=== PATIENT | male | born 1945 | race Two or more races ===

== ENCOUNTER 2024-01-28 00:29 | Inpatient (IN) | payer OTHER ==
[~2024-01-28] VITALS: Ht 152.4 cm; Wt 128.4 kg
[2024-01-28] MEDS ORDERED: GABAPENTIN ER600 MG PO (00:47)
[2024-01-28] MEDS ORDERED: TENORMIN50 M1 PO (00:47)
[2024-01-28] MEDS ORDERED: SIMVASTATIN5 MG PO (00:47)
[2024-01-28] MEDS ORDERED: PLAVIX75 MG PO (00:47)
[2024-01-28] MEDS ORDERED: DAFLONEX-XL 11300 MG PO (00:48)
[2024-01-28] MEDS ORDERED: HUMULIN 70100 UNIT/2 SUBCUTANEO (00:49)
--- NOTE | 2024-01-28 00:49 | NUR ---
SE RECIBE PTE MASCULINO ALERTA Y ORIENTADO EN [place] ESFER[facility] REFIERE 3 EPISODIOS DE SANGRADO RECTAL Y PRESENCIA DE COAGULO, DIARREAS Y MAREOS. SE REALIZA EKG Y SE PRESENTA A MD DE TUR[place]. SE CATA S/V Y SE UBICA.
[2024-01-28] MEDS ORDERED: RINGERS SOLUTION,LACTATED 1,000 ML IV STA (02:01)
[2024-01-28 02:39] LABS: URINE APPEARANCE Clear; URINE BILIRRUBIN Negative (NEGATIVE); URINE BLOOD Negative; URINE COLOR Yellow; URINE KETONE Negative (NEGATIVE); URINE LEUKOCYTE Negative; URINE NITRATE Negative; URINE UROBILINOGEN 0.2 E.U./dl
[2024-01-28 02:43] LABS: URINE BACTERIA 94.4 uL (0.0-1933); URINE EPITHELIAL CELLS 1.5 uL (0.0-38.8)
[2024-01-28 02:52] LABS: URINE GLUCOSE 500 MG/DL (NEGATIVE); URINE PROTEIN 300 (NEGATIVE); URINE RBC 1.6 uL (0.0-20.8)
--- NOTE | 2024-01-28 03:03 | NUR ---
PTE ALERTA Y ORIENTADO X3 EN COMPANIA DE ESPOSA. SE REALIZAN MUESTRAS DE LAB ACE ORDEN MEDICA Y BAJO MEDIDAS ASEPTICA. SE CANALIZA CON ANGIO 18 Y 20 EN MANO RT, AREA PATENTE.
[2024-01-28 03:08] LABS: MEAN CORPUSCULAR HGB CONC 33.8 g/dl (32.0-36.0); PLATELET COUNT 153 K/uL (150-450); RED BLOOD COUNT 2.06 M/uL (4.00-6.00); RED CELL DISTRIBUTION WIDTH 13.8 % (11.5-14.5)
[2024-01-28 03:10] LABS: HEMATOCRIT 21.6 % (39.0-48.0); HEMOGLOBIN 7.3 g/dL (13-16.00); MEAN CORPUSCULAR HEMOGLOBIN 35.4 pg (27.00-32.0)
--- NOTE | 2024-01-28 03:10 | NUR ---
PTE SETH SANDHU.
[2024-01-28 03:21] LABS: INR 1.19; PARTIAL THROMBOPLASTIN TIME 24.2 SECONDS (22.0-34.0); PROTHROMBIN TIME 12.8 SECONDS (9.0-11.5)
[2024-01-28 04:05] LABS: ALBUMIN 2.6 gm/dL (3.4-5.0); BILIRUBIN TOTAL 0.28 mg/dL (0.3-1.2); GFR 14.56; GLOBULINA 3.3 G/DL (2.4-3.5); POTASSIUM 5.16 mEq/L (3.5-5.1); TOTAL PROTEIN 5.9 gm/dL (6.4-8.2)
[2024-01-28 04:52] LABS: CREATININE SERUM 3.99 mg/dL (0.70-1.30)
[2024-01-28] MEDS ORDERED: SODIUM POLYSTYRENE SULFONATE 30G/8 TSP PO ONE (11:00)
[2024-01-28] MEDS ORDERED: PANTOPRAZOLE SODIUM 40 MG/VIAL VIAL IV STA (14:23)
[2024-01-28] MEDS ORDERED: INSULIN LISPRO 1,000 UNIT/10 ML UNITS SUBCUTANEO PRN (14:30)
[2024-01-28] MEDS ORDERED: DEXTROSE 50 % IN WATER 0.5 G/ML DISP.SYRIN IV PRN (14:30)
[2024-01-28] MEDS ORDERED: AA 4.25%/CAL/LYTES/DEXT 5% 1,000 ML PERIFERAL SCH (17:00)
[2024-01-28] MEDS ORDERED: PANTOPRAZOLE SODIUM 40 MG/VIAL VIAL IV SCH (21:00)
[2024-01-28 22:08] VITALS: BP 146/68
[2024-01-28] MEDS ORDERED: ATORVASTATIN CALCIUM 40 MG TABLET PO SCH (22:53)
[2024-01-28] MEDS ORDERED: FUROsemide 40 MG/4 ML VIAL IV SCH (23:00)
[2024-01-29 02:31] VITALS: BP 97/39
[2024-01-29] MEDS ORDERED: NIFEDIPINE 30 MG TAB.SA.OSM PO SCH (09:00)
[2024-01-29] MEDS ORDERED: PATIENTS OWN MEDICATION (MEDICAMENTO EN PISO) PO SCH (09:00)
[2024-01-29] MEDS ORDERED: SUCRALFATE 1 G TABLET PO SCH (09:00)
[2024-01-29 10:10] VITALS: BP 141/65; O2SAT 97
[2024-01-29 12:05] LABS: HEMATOCRIT 19.1 % (39.0-48.0); MEAN CORPUSCULAR HEMOGLOBIN 33.8 pg (27.00-32.0); MEAN CORPUSCULAR HGB CONC 34.6 g/dl (32.0-36.0); PLATELET COUNT 98 K/uL (150-450); RED BLOOD COUNT 1.95 M/uL (4.00-6.00); RED CELL DISTRIBUTION WIDTH 15.9 % (11.5-14.5)
[2024-01-29 12:22] LABS: ALBUMIN 2.3 gm/dL (3.4-5.0); BILIRUBIN TOTAL 0.45 mg/dL (0.3-1.2); CALCIUM 8.1 mg/dL (8.5-10.1); CREATININE SERUM 3.34 mg/dL (0.70-1.30); GFR 17.88; GLOBULINA 2.3 G/DL (2.4-3.5); MAGNESIUM 1.9 mg/dL (1.8-2.4); PHOSPHOROUS 5.2 mg/dL (2.5-4.9); POTASSIUM 4.25 mEq/L (3.5-5.1); TOTAL PROTEIN 4.6 gm/dL (6.4-8.2)
[2024-01-29 12:34] LABS: HEMOGLOBIN 6.6 g/dL (13-16.00)
[2024-01-29 20:32] VITALS: BP 97/55
[2024-01-29] MEDS ORDERED: GABAPENTIN 600 MG TABLET PO SCH (21:00)
[2024-01-29] MEDS ORDERED: RINGERS SOLUTION,LACTATED 1,000 ML IV STA (23:00)
[2024-01-29] MEDS ORDERED: AMINOCAPROIC ACID 250 MG/ML VIAL IV ONE (23:00)
[2024-01-30] VITALS (7 sets, daily range): BP systolic 85–128; BP diastolic 40–83; O2SAT 93–100
[2024-01-30] MEDS ORDERED: RINGERS SOLUTION,LACTATED 1,000 ML IV SCH (17:45)
[2024-01-30 19:38] LABS: MEAN CELL VOLUME 89.5 fL (80.0-100.00); MEAN CORPUSCULAR HGB CONC 34.3 g/dl (32.0-36.0); RED BLOOD COUNT 2.91 M/uL (4.00-6.00); RED CELL DISTRIBUTION WIDTH 18.3 % (11.5-14.5)
[2024-01-30 19:42] LABS: HEMOGLOBIN 8.9 g/dL (13-16.00); MEAN CORPUSCULAR HEMOGLOBIN 30.5 pg (27.00-32.0); PLATELET COUNT 74 K/uL (150-450)
[2024-01-30 19:58] LABS: ALBUMIN 2.2 gm/dL (3.4-5.0); BILIRUBIN TOTAL 0.68 mg/dL (0.3-1.2); CALCIUM 7.8 mg/dL (8.5-10.1); CREATININE SERUM 2.41 mg/dL (0.70-1.30); GFR 26.05; GLOBULINA 2.5 G/DL (2.4-3.5); MAGNESIUM 1.7 mg/dL (1.8-2.4); POTASSIUM 3.26 mEq/L (3.5-5.1); TOTAL PROTEIN 4.7 gm/dL (6.4-8.2)
[2024-01-31] MEDS ORDERED: POTASSIUM CHLORIDE IN WATER 100 ML IV ONE (00:30)
[2024-01-31] MEDS ORDERED: MAGNESIUM SULFATE IN WATER 50 ML IV ONE (00:30)
[2024-01-31 04:00] VITALS: BP 115/72; O2SAT 100
[2024-01-31 07:09] VITALS: BP 91/69; O2SAT 62
[2024-01-31 12:00] VITALS: BP 116/68; O2SAT 100
[2024-01-31 12:25] LABS: HEMOGLOBIN 10.5 g/dL (13-16.00); MEAN CORPUSCULAR HEMOGLOBIN 31.1 pg (27.00-32.0); PLATELET COUNT 74 K/uL (150-450); RED BLOOD COUNT 3.37 M/uL (4.00-6.00); RED CELL DISTRIBUTION WIDTH 17.9 % (11.5-14.5)
[2024-01-31 12:31] LABS: ALBUMIN 2.3 gm/dL (3.4-5.0); BILIRUBIN TOTAL 1.03 mg/dL (0.3-1.2); CALCIUM 7.9 mg/dL (8.5-10.1); CREATININE SERUM 2.2 mg/dL (0.70-1.30); GFR 28.94; GLOBULINA 2.9 G/DL (2.4-3.5); MAGNESIUM 2.1 mg/dL (1.8-2.4); PHOSPHOROUS 3.7 mg/dL (2.5-4.9); POTASSIUM 3.46 mEq/L (3.5-5.1); TOTAL PROTEIN 5.2 gm/dL (6.4-8.2)
[2024-01-31 15:55] VITALS: BP 81/67; O2SAT 100
[2024-01-31] MEDS ORDERED: NOREPINEPHRINE BITARTRATE 8 MG in DEXTROSE 5 % IN WATER 250 ML IV PRN (17:15)
[2024-01-31 18:58] LABS: HEMATOCRIT 30.3 % (39.0-48.0); HEMOGLOBIN 10.4 g/dL (13-16.00); RED BLOOD COUNT 3.38 M/uL (4.00-6.00)
[2024-01-31] MEDS ORDERED: CEFTRIAXONE SODIUM 1,000 MG VIAL IV SCH (19:58)
[2024-01-31 20:00] VITALS: BP 92/62; O2SAT 100
[2024-01-31 23:19] VITALS: BP 88/58; O2SAT 100
[2024-02-01] VITALS (9 sets, daily range): BP systolic 101–135; BP diastolic 66–95; O2SAT 95–100
[2024-02-01] MEDS ORDERED: BISACODYL 5 MG TABLET.EC PO ONE (06:15)
[2024-02-01 06:24] LABS: HEMATOCRIT 29.4 % (39.0-48.0); HEMOGLOBIN 10.2 g/dL (13-16.00); MEAN CELL VOLUME 89.7 fL (80.0-100.00); MEAN CORPUSCULAR HEMOGLOBIN 31.1 pg (27.00-32.0); MEAN CORPUSCULAR HGB CONC 34.7 g/dl (32.0-36.0); RED BLOOD COUNT 3.28 M/uL (4.00-6.00); RED CELL DISTRIBUTION WIDTH 17.3 % (11.5-14.5)
[2024-02-01 06:31] LABS: PLATELET COUNT 75 K/uL (150-450)
[2024-02-01 06:49] LABS: ALBUMIN 2.5 gm/dL (3.4-5.0); BILIRUBIN TOTAL 0.85 mg/dL (0.3-1.2); CALCIUM 8.1 mg/dL (8.5-10.1); CREATININE SERUM 2.06 mg/dL (0.70-1.30); GFR 31.22; GLOBULINA 2.8 G/DL (2.4-3.5); POTASSIUM 3.1 mEq/L (3.5-5.1); TOTAL PROTEIN 5.3 gm/dL (6.4-8.2)
[2024-02-01] MEDS ORDERED: POLYETHYLENE GLYCOL 3350 238 GM POWDER PO NR (08:10)
[2024-02-01] MEDS ORDERED: BISACODYL 5 MG TABLET.EC PO NR (08:15)
[2024-02-01 09:22] LABS: ALT/SGPT 20 U/L (12-78); AST/SGOT 34 U/L (15-37); LDH 346 U/L (87-241); PHOSPHOKINASE CREATININE 164 U/L (39-308)
[2024-02-01 09:24] LABS: URINE APPEARANCE Clear; URINE BACTERIA 89.4 uL (0.0-1933); URINE BILIRRUBIN Negative (NEGATIVE); URINE BLOOD Moderate; URINE COLOR Yellow; URINE EPITHELIAL CELLS 12.9 uL (0.0-38.8); URINE KETONE Trace (NEGATIVE); URINE LEUKOCYTE Negative; URINE NITRATE Negative; URINE RBC 3.2 uL (0.0-20.8); URINE UROBILINOGEN 0.2 E.U./dl; URINE WBC 6.3 uL (0.0-23.2)
[2024-02-01 09:45] LABS: URINE CAST > 21.83 uL (0.0-1.40); URINE GLUCOSE >=1000 MG/DL (NEGATIVE); URINE PROTEIN 300 (NEGATIVE)
[2024-02-01 09:49] LABS: URINE CRYSTALS FEW /HPF
[2024-02-01] MEDS ORDERED: FUROsemide 20 MG/2 ML VIAL IV ONE (10:00)
[2024-02-01 10:38] LABS: ABG PH 7.319 (7.35-7.45); ABG PO2 190.5 mmHg (80-100); ABG pCO2 49.3 mmHg (35-45); BASE EXCESS -1.9 mmol/l; BICARBONATE 24.8 mmol/l (23-25); SaO2 99.5 %; Tco2 26.3 mmol/l
[2024-02-01 10:39] LABS: allen test SATISFACTORY; o2 100 %; puncture site RADIAL RIGHT
[2024-02-01 10:40] LABS: ABG PH 7.327 (7.35-7.45); ABG PO2 328.3 mmHg (80-100); ABG pCO2 47.3 mmHg (35-45); BASE EXCESS -2.1 mmol/l; BICARBONATE 24.2 mmol/l (23-25); SaO2 99.9 %; Tco2 25.7 mmol/l
[2024-02-01 10:42] LABS: allen test SATISFACTORY; o2 100 %; puncture site RADIAL RIGHT
[2024-02-01] MEDS ORDERED: CHLORHEXIDINE GLUCONATE 15ML BRUSH KIT MM SCH ×2 (17:00→17:07)
[2024-02-01] MEDS ORDERED: POLYVINYL ALCOHOL 15 ML DROPS OP SCH (17:00)
[2024-02-01] MEDS ORDERED: CARBOXYMETHYLCELLULOSE SODIUM 1 EACH DROPERETTE OP SCH (17:07)
[2024-02-01] MEDS ORDERED: MIDAZOLAM HCL 100 MG in 0.9 % SODIUM CHLORIDE 100 ML IV SCH (17:15)
[2024-02-01 18:28] LABS: HEMATOCRIT 29.7 % (39.0-48.0); HEMOGLOBIN 10.2 g/dL (13-16.00); MEAN CELL VOLUME 89.8 fL (80.0-100.00); MEAN CORPUSCULAR HEMOGLOBIN 30.9 pg (27.00-32.0); MEAN CORPUSCULAR HGB CONC 34.4 g/dl (32.0-36.0); RED CELL DISTRIBUTION WIDTH 17.4 % (11.5-14.5)
[2024-02-01 18:39] LABS: PLATELET COUNT 78 K/uL (150-450)
[2024-02-01] MEDS ORDERED: AMIODARONE HCL 50 MG/ML AMPUL IV SCH (18:45)
[2024-02-01 19:27] LABS: ABG PH 7.333 (7.35-7.45); ABG PO2 205.7 mmHg (80-100); BASE EXCESS -1.4 mmol/l; SaO2 99.6 %; Tco2 26.4 mmol/l
[2024-02-01 20:10] LABS: allen test SATISFACTORY; o2 100 %; puncture site RADIAL LEFT
[2024-02-02] VITALS (17 sets, daily range): BP systolic 81–137; BP diastolic 57–98; O2SAT 99–100
[2024-02-02] MEDS ORDERED: FUROsemide 20 MG/2 ML VIAL IV SCH (09:00)
[2024-02-02 09:22] LABS: ABG PO2 111.9 mmHg (80-100); ABG pCO2 46.6 mmHg (35-45)
[2024-02-02 09:23] LABS: BASE EXCESS -0.2 mmol/l; BICARBONATE 25.7 mmol/l (23-25); SaO2 98.1 %; Tco2 27.1 mmol/l
[2024-02-02 09:24] LABS: allen test SATISFACTORY; o2 100 %; puncture site RADIAL RIGHT
[2024-02-02 09:43] LABS: HEMATOCRIT 29.5 % (39.0-48.0); HEMOGLOBIN 10.2 g/dL (13-16.00); MEAN CELL VOLUME 90.1 fL (80.0-100.00); MEAN CORPUSCULAR HEMOGLOBIN 31.1 pg (27.00-32.0); MEAN CORPUSCULAR HGB CONC 34.6 g/dl (32.0-36.0); PLATELET COUNT 65 K/uL (150-450); RED BLOOD COUNT 3.27 M/uL (4.00-6.00); RED CELL DISTRIBUTION WIDTH 17.4 % (11.5-14.5)
[2024-02-02 10:46] LABS: CALCIUM 8.2 mg/dL (8.5-10.1); CREATININE SERUM 1.95 mg/dL (0.70-1.30); GFR 33.27; MAGNESIUM 2.1 mg/dL (1.8-2.4)
[2024-02-02 10:51] LABS: POTASSIUM 2.92 mEq/L (3.5-5.1)
[2024-02-02] MEDS ORDERED: POTASSIUM CHLORIDE IN WATER 40 MEQ/100 ML PIGGYBAG IV SCH (13:00)
[2024-02-03] VITALS (23 sets, daily range): BP systolic 63–116; BP diastolic 51–92; O2SAT 98–116
[2024-02-03 09:03] LABS: ABG PH 7.385 (7.35-7.45); ABG PO2 118.6 mmHg (80-100); ABG pCO2 38.9 mmHg (35-45); BASE EXCESS -1.9 mmol/l; BICARBONATE 22.8 mmol/l (23-25); SaO2 98.5 %
[2024-02-03 09:04] LABS: allen test SATISFACTORY; o2 60 %; puncture site RADIAL RIGHT
[2024-02-03] MEDS ORDERED: FentaNYL CITRATE/PF 1,000 MCG in 0.9 % SODIUM CHLORIDE 100 ML IV SCH (09:15)
[2024-02-03 10:08] LABS: HEMATOCRIT 30.8 % (39.0-48.0); HEMOGLOBIN 10.2 g/dL (13-16.00); MEAN CELL VOLUME 91.1 fL (80.0-100.00); MEAN CORPUSCULAR HEMOGLOBIN 30.3 pg (27.00-32.0); MEAN CORPUSCULAR HGB CONC 33.2 g/dl (32.0-36.0); RED BLOOD COUNT 3.38 M/uL (4.00-6.00); RED CELL DISTRIBUTION WIDTH 17.8 % (11.5-14.5)
[2024-02-03 10:09] LABS: PLATELET COUNT 99 K/uL (150-450)
[2024-02-03 11:26] LABS: ALBUMIN 1.8 gm/dL (3.4-5.0); BILIRUBIN TOTAL 0.54 mg/dL (0.3-1.2); CALCIUM 8.2 mg/dL (8.5-10.1); CREATININE SERUM 1.97 mg/dL (0.70-1.30); GFR 32.88; GLOBULINA 3.2 G/DL (2.4-3.5); POTASSIUM 3.41 mEq/L (3.5-5.1)
[2024-02-04] VITALS (21 sets, daily range): BP systolic 62–149; BP diastolic 37–94; O2SAT 94–100
[2024-02-04 10:27] LABS: ABG PO2 64.3 mmHg (80-100); ABG pCO2 40.6 mmHg (35-45); BASE EXCESS -1.5 mmol/l; BICARBONATE 23.5 mmol/l (23-25); SaO2 91.6 %; Tco2 24.7 mmol/l
[2024-02-04 11:20] LABS: allen test SATISFACTORY; o2 50 %; puncture site RADIAL RIGHT
[2024-02-04 12:03] LABS: HEMATOCRIT 31.4 % (39.0-48.0); HEMOGLOBIN 10.8 g/dL (13-16.00); MEAN CORPUSCULAR HEMOGLOBIN 30.9 pg (27.00-32.0); MEAN CORPUSCULAR HGB CONC 34.3 g/dl (32.0-36.0); RED BLOOD COUNT 3.49 M/uL (4.00-6.00); RED CELL DISTRIBUTION WIDTH 18.5 % (11.5-14.5)
[2024-02-04 12:18] LABS: PLATELET COUNT 109 K/uL (150-450)
[2024-02-05] VITALS (20 sets, daily range): BP systolic 56–115; BP diastolic 28–87; O2SAT 85–100
[2024-02-05 07:38] LABS: ALBUMIN 1.4 gm/dL (3.4-5.0); BILIRUBIN TOTAL 0.42 mg/dL (0.3-1.2); CALCIUM 8.2 mg/dL (8.5-10.1); CREATININE SERUM 2.15 mg/dL (0.70-1.30); GFR 29.72; MAGNESIUM 1.8 mg/dL (1.8-2.4); PHOSPHOROUS 3.2 mg/dL (2.5-4.9); POTASSIUM 3.23 mEq/L (3.5-5.1); TOTAL PROTEIN 4.4 gm/dL (6.4-8.2)
[2024-02-05 07:47] LABS: HEMOGLOBIN 9.5 g/dL (13-16.00); MEAN CELL VOLUME 91.3 fL (80.0-100.00); MEAN CORPUSCULAR HEMOGLOBIN 31.1 pg (27.00-32.0); RED BLOOD COUNT 3.07 M/uL (4.00-6.00); RED CELL DISTRIBUTION WIDTH 18.5 % (11.5-14.5)
[2024-02-05 08:35] LABS: PLATELET COUNT 98 K/uL (150-450)
[2024-02-05 10:15] LABS: ABG PH 7.392 (7.35-7.45); ABG pCO2 39.9 mmHg (35-45)
[2024-02-05 10:16] LABS: ABG PO2 59.8 mmHg (80-100); BASE EXCESS -1.1 mmol/l; BICARBONATE 23.7 mmol/l (23-25); SaO2 90.2 %; Tco2 24.9 mmol/l; allen test SATISFACTORY; o2 60 %; puncture site RADIAL LEFT
[2024-02-05] MEDS ORDERED: POTASSIUM CHLORIDE 20MEQ/100ML H2O PB IV NR (13:40)
[2024-02-06] VITALS (21 sets, daily range): BP systolic 56–128; BP diastolic 18–92; O2SAT 92–100
[2024-02-06 06:56] LABS: HEMATOCRIT 26.8 % (39.0-48.0); HEMOGLOBIN 9.5 g/dL (13-16.00); MEAN CELL VOLUME 90.2 fL (80.0-100.00); MEAN CORPUSCULAR HEMOGLOBIN 31.9 pg (27.00-32.0); MEAN CORPUSCULAR HGB CONC 35.4 g/dl (32.0-36.0); RED BLOOD COUNT 2.98 M/uL (4.00-6.00); RED CELL DISTRIBUTION WIDTH 18.4 % (11.5-14.5)
[2024-02-06 06:57] LABS: PLATELET COUNT 99 K/uL (150-450)
[2024-02-06 07:04] LABS: INR 1.49; PARTIAL THROMBOPLASTIN TIME 32.5 SECONDS (22.0-34.0)
[2024-02-06 07:24] LABS: PROTHROMBIN TIME 15.8 SECONDS (9.0-11.5)
[2024-02-06 07:28] LABS: ALBUMIN 1.3 gm/dL (3.4-5.0); BILIRUBIN TOTAL 0.59 mg/dL (0.3-1.2); BILIRUBIN,CONJUGATED 0.37 mg/dL (0.0-0.2); BILIRUBIN,UNCONJUGATED 0.22 mg/dL (0.0-0.6); CALCIUM 8.4 mg/dL (8.5-10.1); CHOL HDL RATIO 3.2 (0-5.0); CREATININE SERUM 2.2 mg/dL (0.70-1.30); GFR 28.94; GLOBULINA 2.8 G/DL (2.4-3.5); MAGNESIUM 1.5 mg/dL (1.8-2.4); POTASSIUM 3.19 mEq/L (3.5-5.1); TOTAL PROTEIN 4.1 gm/dL (6.4-8.2)
[2024-02-06 08:51] LABS: ABG PH 7.372 (7.35-7.45); ABG PO2 67.2 mmHg (80-100); ABG pCO2 42.1 mmHg (35-45); BASE EXCESS -1.4 mmol/l; BICARBONATE 23.9 mmol/l (23-25); SaO2 92.4 %; Tco2 25.2 mmol/l
[2024-02-06 09:16] LABS: allen test SATISFACTORY; o2 50 %; puncture site RADIAL RIGHT
[2024-02-06] MEDS ORDERED: MAGNESIUM SULFATE IN WATER 4 GM/100 ML PIGGYBACK IV STA (10:16)
[2024-02-06] MEDS ORDERED: POTASSIUM CHLORIDE IN WATER 100 ML IV SCH (10:17)
[2024-02-06] MEDS ORDERED: SODIUM CHLORIDE 0.45 % 1,000 ML IV SCH (10:30)
[2024-02-06] MEDS ORDERED: DEXTROSE 5 %-0.45 % SOD CHLORD 1,000 ML IV SCH (11:15)
[2024-02-06] MEDS ORDERED: FUROsemide 40 MG/4 ML VIAL IV SCH (13:00)
[2024-02-06] MEDS ORDERED: AMINO ACIDS/PROTEIN HYDROLYS 30 ML BLIST.PACK NGT SCH (13:00)
[2024-02-06] MEDS ORDERED: ALBUMIN HUMAN 100 ML VIAL IV SCH (13:00)
[2024-02-06] MEDS ORDERED: FUROsemide 20 MG/2 ML VIAL IV SCH (21:00)
[2024-02-07] VITALS (20 sets, daily range): BP systolic 69–158; BP diastolic 43–96; O2SAT 92–100
[2024-02-07] MEDS ORDERED: ENALAPRILAT IV PRN (04:45)
[2024-02-07] MEDS ORDERED: ENALAPRILAT DIHYDRATE 1.25 MG/ML VIAL IV PRN (08:15)
[2024-02-07 08:49] LABS: ABG pCO2 45.5 mmHg (35-45); BASE EXCESS -2.7 mmol/l; BICARBONATE 23.4 mmol/l (23-25); SaO2 83.8 %; Tco2 24.8 mmol/l
[2024-02-07 10:34] LABS: ABG PO2 52.7 mmHg (80-100); allen test SATISFACTORY; o2 80 %; puncture site RADIAL RIGHT
[2024-02-07 12:21] LABS: HEMATOCRIT 29.8 % (39.0-48.0); HEMOGLOBIN 9.8 g/dL (13-16.00); MEAN CELL VOLUME 90.1 fL (80.0-100.00); MEAN CORPUSCULAR HEMOGLOBIN 29.8 pg (27.00-32.0); MEAN CORPUSCULAR HGB CONC 33.1 g/dl (32.0-36.0); RED BLOOD COUNT 3.31 M/uL (4.00-6.00); RED CELL DISTRIBUTION WIDTH 18.2 % (11.5-14.5)
[2024-02-07 12:24] LABS: PLATELET COUNT 98 K/uL (150-450)
[2024-02-07] MEDS ORDERED: HYDROCORTISONE SODIUM SUCC/PF 100 MG VIAL IV STA (12:26)
[2024-02-07 12:48] LABS: ALBUMIN 2.2 gm/dL (3.4-5.0); BILIRUBIN TOTAL 2.06 mg/dL (0.3-1.2); CALCIUM 7.9 mg/dL (8.5-10.1); CREATININE SERUM 2.71 mg/dL (0.70-1.30); GFR 22.75; GLOBULINA 2.4 G/DL (2.4-3.5); MAGNESIUM 2.3 mg/dL (1.8-2.4); PHOSPHOROUS 3.3 mg/dL (2.5-4.9); POTASSIUM 3.51 mEq/L (3.5-5.1); TOTAL PROTEIN 4.6 gm/dL (6.4-8.2)
[2024-02-07 14:07] LABS: PLEURAL FLUID APPEARANCE CRYSTAL CLEAR; PLEURAL FLUID COLOR YELLOW
[2024-02-07 14:33] LABS: TP PLEURAL FLUID 1.7 g/dl
[2024-02-07 15:20] LABS: MONONUCLEAR 85 %; POLYMORPHONUCLEAR 15 %
[2024-02-07] MEDS ORDERED: CEFTRIAXONE SODIUM 2,000 MG VIAL IV SCH (17:00)
[2024-02-07] MEDS ORDERED: FF) Daptomycin 500 MG/VIAL IV SCH (17:00)
[2024-02-07] MEDS ORDERED: HYDROCORTISONE SODIUM SUCC/PF 50 MG/ML ML IV SCH (18:00)
[2024-02-08] VITALS (21 sets, daily range): BP systolic 67–165; BP diastolic 32–92; O2SAT 93–98
[2024-02-08 06:47] LABS: HEMATOCRIT 28.6 % (39.0-48.0); HEMOGLOBIN 9.3 g/dL (13-16.00); MEAN CORPUSCULAR HEMOGLOBIN 29.9 pg (27.00-32.0); MEAN CORPUSCULAR HGB CONC 32.5 g/dl (32.0-36.0); RED BLOOD COUNT 3.11 M/uL (4.00-6.00)
[2024-02-08 07:17] LABS: ALBUMIN 1.5 gm/dL (3.4-5.0); BILIRUBIN TOTAL 0.98 mg/dL (0.3-1.2); CALCIUM 7.9 mg/dL (8.5-10.1); CREATININE SERUM 2.67 mg/dL (0.70-1.30); GFR 23.15; GLOBULINA 2.3 G/DL (2.4-3.5); MAGNESIUM 2.6 mg/dL (1.8-2.4); PHOSPHOROUS 5.8 mg/dL (2.5-4.9); POTASSIUM 4.75 mEq/L (3.5-5.1); TOTAL PROTEIN 3.8 gm/dL (6.4-8.2)
[2024-02-08 07:19] LABS: PLATELET COUNT 100 K/uL (150-450)
[2024-02-08] MEDS ORDERED: AMIODARONE HCL 200 MG TABLET NGT NR (10:30)
[2024-02-08 10:31] LABS: ABG PH 7.388 (7.35-7.45); ABG PO2 60.6 mmHg (80-100); ABG pCO2 38.8 mmHg (35-45); SaO2 90.4 %
[2024-02-08 10:32] LABS: BASE EXCESS -1.8 mmol/l; BICARBONATE 22.9 mmol/l (23-25)
[2024-02-08 10:33] LABS: allen test SATISFACTORY; o2 100 %; puncture site RADIAL LEFT
[2024-02-08] MEDS ORDERED: AMIODARONE HCL 200 MG TABLET NGT SCH (17:00)
[2024-02-09] VITALS (23 sets, daily range): BP systolic 51–137; BP diastolic 31–108; O2SAT 77–96
[2024-02-09] MEDS ORDERED: ALBUMIN HUMAN-25 0.25GM/ML (50ML) VIAL IV SCH (01:00)
[2024-02-09] MEDS ORDERED: FUROsemide 40 MG/4 ML VIAL IV SCH (01:00)
[2024-02-09 06:20] LABS: HEMATOCRIT 31.5 % (39.0-48.0); HEMOGLOBIN 10.4 g/dL (13-16.00); MEAN CELL VOLUME 90.8 fL (80.0-100.00); MEAN CORPUSCULAR HEMOGLOBIN 29.8 pg (27.00-32.0); MEAN CORPUSCULAR HGB CONC 32.8 g/dl (32.0-36.0); PLATELET COUNT 135 K/uL (150-450); RED BLOOD COUNT 3.47 M/uL (4.00-6.00); RED CELL DISTRIBUTION WIDTH 19.1 % (11.5-14.5)
[2024-02-09] MEDS ORDERED: PHENYLEPHRINE HCL 20 MG in 0.9 % SODIUM CHLORIDE 250 ML IV SCH (06:30)
[2024-02-09] MEDS ORDERED: 0.9 % SODIUM CHLORIDE 500 ML IV ONE (06:30)
[2024-02-09 06:52] LABS: ALBUMIN 1.7 gm/dL (3.4-5.0); BILIRUBIN TOTAL 1.49 mg/dL (0.3-1.2); GFR 16.72; GLOBULINA 2.7 G/DL (2.4-3.5); MAGNESIUM 2.1 mg/dL (1.8-2.4); POTASSIUM 3.52 mEq/L (3.5-5.1); TOTAL PROTEIN 4.4 gm/dL (6.4-8.2)
[2024-02-09 07:00] LABS: CREATININE SERUM 3.54 mg/dL (0.70-1.30)
[2024-02-09 09:00] LABS: ABG PH 7.289 (7.35-7.45)
[2024-02-09] MEDS ORDERED: ALBUMIN HUMAN 100 ML VIAL IV SCH (09:00)
[2024-02-09 09:01] LABS: ABG PO2 52.9 mmHg (80-100); ABG pCO2 43.1 mmHg (35-45); BASE EXCESS -6.2 mmol/l; BICARBONATE 20.2 mmol/l (23-25); SaO2 81.7 %; Tco2 21.5 mmol/l; o2 100 %; puncture site RADIAL LEFT
[2024-02-09 09:02] LABS: allen test SATISFACTORY
[2024-02-09] MEDS ORDERED: PHENYLEPHRINE HCL IV SCH (10:45)
[2024-02-09] MEDS ORDERED: NOREPINEPHRINE BITARTRATE 16 MG in DEXTROSE 5 % IN WATER 500 ML IV SCH (10:45)
[2024-02-09] MEDS ORDERED: SODIUM CHLORIDE 0.9% IV SCH (10:45)
[2024-02-09] MEDS ORDERED: MIDODRINE HCL 5 MG TABLET PO SCH (22:05)
[2024-02-10] VITALS (9 sets, daily range): BP systolic 68–109; BP diastolic 29–87; O2SAT 47–54
[2024-02-10] MEDS ORDERED: HYDROCORTISONE SODIUM SUCC/PF 50 MG/ML ML IV SCH (01:00)
[2024-02-10] MEDS ORDERED: MEROPENEM 500 MG/VIAL VIAL IV SCH ×2 (07:04→09:00)
[2024-02-10 07:07] LABS: HEMATOCRIT 29.3 % (39.0-48.0); HEMOGLOBIN 9.1 g/dL (13-16.00); MEAN CORPUSCULAR HEMOGLOBIN 30.5 pg (27.00-32.0); MEAN CORPUSCULAR HGB CONC 31.1 g/dl (32.0-36.0); PLATELET COUNT 119 K/uL (150-450); RED BLOOD COUNT 2.99 M/uL (4.00-6.00); RED CELL DISTRIBUTION WIDTH 20.2 % (11.5-14.5)
[2024-02-10 08:05] LABS: ALBUMIN 1.6 gm/dL (3.4-5.0); BILIRUBIN TOTAL 1.27 mg/dL (0.3-1.2); CALCIUM 7.6 mg/dL (8.5-10.1); GFR 11.15; GLOBULINA 2.1 G/DL (2.4-3.5); MAGNESIUM 2.9 mg/dL (1.8-2.4); PHOSPHOROUS 8.7 mg/dL (2.5-4.9); POTASSIUM 4.84 mEq/L (3.5-5.1); TOTAL PROTEIN 3.7 gm/dL (6.4-8.2)
[2024-02-10 08:17] LABS: CREATININE SERUM 5.03 mg/dL (0.70-1.30)
== END 2024-02-10 07:47 | disposition expired | DRG 811 ==
LOC: ER 00:31 → ICU 15:22 → MEDJ 15:22 → ICU 01-30 04:44
PROVIDERS: Internal Medicine; Internal Medicine Gastroenterology; Internal Medicine Geriatric Medicine; Radiology Vascular & Interventional Radiology; ADMIT Internal Medicine; ATTEND Internal Medicine
PROC: 02HV33Z Insertion of Infusion Device into Superior Vena Cava, Percutaneous Approach (ICD-10-PCS; 2024-01-28)
PROC: 30233N1 Transfusion of Nonautologous Red Blood Cells into Peripheral Vein, Percutaneous Approach (ICD-10-PCS; 2024-01-28)
PROC: 30233L1 Transfusion of Nonautologous Fresh Plasma into Peripheral Vein, Percutaneous Approach (ICD-10-PCS; 2024-01-31)
PROC: 30233K1 Transfusion of Nonautologous Frozen Plasma into Peripheral Vein, Percutaneous Approach (ICD-10-PCS; 2024-01-31)
PROC: 0BH17EZ Insertion of Endotracheal Airway into Trachea, Via Natural or Artificial Opening (ICD-10-PCS; principal; 2024-02-01)
PROC: 5A1955Z Respiratory Ventilation, Greater than 96 Consecutive Hours (ICD-10-PCS; 2024-02-01)
PROC: B24BZZZ Ultrasonography of Heart with Aorta (ICD-10-PCS; 2024-02-02)
PROC: 0W993ZX Drainage of Right Pleural Cavity, Percutaneous Approach, Diagnostic (ICD-10-PCS; 2024-02-07)
DX: D62 Acute posthemorrhagic anemia (principal); I21.4 Non-ST elevation (NSTEMI) myocardial infarction; T80.211A Bloodstream infection due to central venous catheter, initial encounter; J96.00 Acute respiratory failure, unspecified whether with hypoxia or hypercapnia; R65.21 Severe sepsis with septic shock; N17.9 Acute kidney failure, unspecified; I12.0 Hypertensive chronic kidney disease with stage 5 chronic kidney disease or end stage renal disease; N18.5 Chronic kidney disease, stage 5; K62.5 Hemorrhage of anus and rectum; J90 Pleural effusion, not elsewhere classified; R78.81 Bacteremia; I48.20 Chronic atrial fibrillation, unspecified; E78.5 Hyperlipidemia, unspecified; E87.5 Hyperkalemia; K57.30 Diverticulosis of large intestine without perforation or abscess without bleeding; I95.89 Other hypotension; E11.22 Type 2 diabetes mellitus with diabetic chronic kidney disease; Z79.4 Long term (current) use of insulin; D69.6 Thrombocytopenia, unspecified; K74.60 Unspecified cirrhosis of liver; I95.9 Hypotension, unspecified; I48.0 Paroxysmal atrial fibrillation; R57.1 Hypovolemic shock; B95.7 Other staphylococcus as the cause of diseases classified elsewhere; I73.9 Peripheral vascular disease, unspecified; K80.20 Calculus of gallbladder without cholecystitis without obstruction; I25.10 Atherosclerotic heart disease of native coronary artery without angina pectoris; R57.8 Other shock